=== PATIENT | female | born 1960 | race Asian ===

== ENCOUNTER 2019-06-05 18:00 | Emergency (ER) | payer OTHER ==
[~2019-06-05] VITALS: Ht 165.1 cm; Wt 85.3 kg
[2019-06-05 18:01] VITALS: BP 179/91; TEMP 97.3
[2019-06-05 18:30] LABS: PLATELET COUNT 255 K/uL (152-353)
[2019-06-05 18:42] LABS: POTASSIUM 3.9 mmol/L (3.6-5.2)
[2019-06-06] MEDS ORDERED: AMLO2.5T PO (04:46)
[2019-06-06] MEDS ORDERED: ASPIRIN 8181 MG PO (04:46)
[2019-06-06] MEDS ORDERED: DIVA250T PO (04:47)
[2019-06-06] MEDS ORDERED: HALO50IN4 IM (04:48)
[2019-06-06] MEDS ORDERED: HYDRALAZINE25 MG PO (04:51)
[2019-06-06] MEDS ORDERED: ADMELOG SO100 UNIT/M SC (04:51)
[2019-06-06] MEDS ORDERED: LANTUS SOL100 UNIT/M SC ×2 (04:52→04:53)
[2019-06-06] MEDS ORDERED: LYRICA25 MG PO (04:54)
[2019-06-06] MEDS ORDERED: SPRITAM250 MG PO (04:54)
[2019-06-06] MEDS ORDERED: METOCLOPRAM5 MG PO (04:55)
[2019-06-06] MEDS ORDERED: SERTRALINE HYDR50 MG PO (04:56)
[2019-06-06] MEDS ORDERED: METO-837 PO (04:56)
[2019-06-06] MEDS ORDERED: APLISOL5 UNIT/0.1 ID (04:57)
[2019-06-06] MEDS ORDERED: BUPR150T PO (04:58)
[2019-06-06] MEDS ORDERED: HUMALOG KW100 UNIT/M SC (10:36)
== END 2019-06-05 21:29 | disposition other institution (70) ==
LOC: ED 18:00
PROVIDERS: Family Medicine
DX: R46.89 Other symptoms and signs involving appearance and behavior (principal); R45.1 Restlessness and agitation; F20.89 Other schizophrenia; Z04.6 Encounter for general psychiatric examination, requested by authority
CPT/HCPCS: 80053; 81000; 85027; 87070; 87077; 87185; 87186; 87205; 93005; 99283; 99285